=== PATIENT | female | born 1975 | race Caucasian/White ===

== ENCOUNTER 2017-07-02 10:20 | Day surgery (SDC) | payer OTHER ==
--- NOTE | 2017-06-29 15:24 | HP ---
DATE OF SURGERY: 07/02/2017 HISTORY OF PRESENT ILLNESS: The patient is a 41 year-old with problems of irregular heavy periods recently. She had an ultrasound that showed thickened endometrial stripes. She had a Pap smear in the past couple of weeks by Dr. Gutierrez. Given her persistent heavy menstrual periods, I feel she would benefit from D&C in which she presents for. PAST SURGICAL HISTORY: Two sections, umbilical hernia repair. She had a tubal. She had cholecystectomy in the past. MEDICATIONS: vitamins and iron, vitamin D. ALLERGIES: NKDA. FAMILY HISTORY: Heart disease, diabetes. SOCIAL HISTORY: No smoking or alcohol abuse. REVIEW OF SYSTEMS: Twelve systems reviewed per admission assessment. No chest pain or palpitations other systems negative or noncontributory as above and per preadmission questionnaire. Her pelvic ultrasound showed nonspecific endometrial fluid. No suspicious adnexal mass. Irregular intermenstrual bleeding. She was told she had a very thin uterine wall during her last section, according to the patient. PHYSICAL EXAMINATION: GENERAL: No acute distress. HEENT: Sclerae nonicteric. NECK: No JVD. CHEST: Equal excursion, nonlabored breathing. CVS: Regular rate and rhythm. ABDOMEN: Soft. No peritoneal signs. EXTREMITIES: No significant edema. NEURO: Alert, oriented, moving extremities symmetrically. No gross motor deficits noted. 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 IMPRESSION: Intermenstrual irregular vaginal bleeding. I feel she is a candidate for consideration of dilatation and curettage. Risks and benefits explained in detail including but not limited to bleeding or infection, possibility of inability to dilate the cervix to allow for passing dilators up as well as overall risk of persistent bleeding possible requiring other procedures as well as possibility of perforation possibly requiring open procedure, ongoing morbidity, general risk of aches, pains or cramping. Again possibility of recurrent or persistent bleeding possibly requiring other intervention or procedures, general risk of anesthesia, deep venous thrombosis, pulmonary embolism or pneumonia but not limited to. She understands. We will see her back in the office postoperatively to go over the path results.
[~2017-07-02 10:20] MED LIST: Lactated Ringers 1,000 ML IV ONE; Lactated Ringers 1,000 ML IV SCH
[2017-07-02] MEDS ORDERED: DIPRIVAN 200 MG/20 ML IV ONE (10:21)
[2017-07-02] MEDS ORDERED: Zofran 4 MG/2 ML VIAL IV ONE (10:21)
[2017-07-02] MEDS ORDERED: SUBLIMAZE 100 MCG/2 ML IV ONE (10:21)
[2017-07-02] MEDS ORDERED: Decadron 4 MG INJ IV ONE (10:21)
[2017-07-02] MEDS ORDERED: TORAdol 30 mg Injection IJ ONE (10:21)
[2017-07-02] MEDS ORDERED: Lactated Ringers 1,000 ML IV ONE (10:27)
[2017-07-02] MEDS ORDERED: ASTRINGYN 8 GM TP ONE (11:32)
[2017-07-02] MEDS ORDERED: ARZOL Silver Nitrate Applicator TP ONE (11:32)
[2017-07-02] MEDS ORDERED: KEFZOL 1 GM ONE (11:57)
[2017-07-02] MEDS ORDERED: Zofran 4 MG/2 ML VIAL ONE (12:53)
[2017-07-02] MEDS ORDERED: Phenergan 25 MG INJ IV ONE (13:47)
[2017-07-02 14:04] VITALS: O2SAT 98
--- NOTE | 2017-07-02 15:18 | OP ---
SURGERY DATE/TIME: 07/02/2017 1145 PREOPERATIVE DIAGNOSIS: Intermenstrual persistent menorrhagia/vaginal/uterine bleeding, failed medical management. POSTOPERATIVE DIAGNOSIS: Intermenstrual persistent menorrhagia/vaginal/uterine bleeding, failed medical management. PROCEDURE: Dilatation and curettage. SURGEON: Dr. Shadi Dalton. ANESTHESIA: General. ESTIMATED BLOOD LOSS: Minimal. INDICATIONS: As noted above. Risks and benefits explained in detail and not limited to, explained the risk of ongoing bleeding, failure to improve her current bleeding, worsening bleeding as well as risk perforation, general risk of anesthesia, deep venous thrombosis, pulmonary embolism but not limited to and consent obtained. DESCRIPTION OF PROCEDURE AND FINDINGS: The patient is taken to the operating room. General anesthesia introduced. In lithotomy position careful exam going into her uterus on bimanual exam. The lubricated retractors were carefully inserted allowing the anterior cervix to be grasped with tenaculum and elevated up. The os was quite small. There was concern about whether being able to dilate enough to even do the procedure but the sound was able to use to sound whether there was any superior obstruction however the depth was sounding to about 4 cm. Once this was accomplished, lubricated sequential dilators then started from 7 to 9 and carefully going up to size 25 to 27 dilator. It passed smoothly dilating the cervix. Once this was accomplished, I felt it was safely dilated up further than that at this juncture. The polyp forceps did not reveal any gross polyps. At this point a wide curette was carefully inserted and endocervical curettage accomplished. A specimen is sent as well as up to a depth scraping what appeared to be firm uterine wall. There was very little extra tissue. What little tissue there was sent and this was accomplished in four quadrants around there. Again, whether there is any further obstruction in the part of the uterus that could not be reached or whether this is the limits of the cavity was unclear but unfortunately did not have benefit of hysteroscopy at this facility. Therefore curetted level that could be reached carefully, the tissue was sent down to firm uterine on top of the cervix tissue. The specimen passed off. Irrigation accomplished. Good hemostasis noted. As there does not seem to be any significant bleeding coming from the dilated os. At this point the anterior tenaculum was released. There was scant ooze from where the right tooth and veterinary technologist. Watching it for a few seconds. Good hemostasis noted. Copious irrigation irrigating until clear. She had no significant bleeding currently. Findings were discussed with the family out in the waiting area. Should she continue to have persistent bleeding may need to consider referral for hysteroscopy should the path be benign. She tolerated the procedure well. There were no immediate complications. She was transferred to the recovery room in stable condition.
[2017-07-02 15:20] VITALS: BP 132/78; PULSE 83
== END 2017-07-02 14:35 | disposition home or self-care (01) ==
LOC: SDC 10:20
PROVIDERS: ATTEND Surgery
PROC: 0UDB7ZX Extraction of Endometrium, Via Natural or Artificial Opening, Diagnostic (ICD-10-PCS; principal; 2017-07-02)
DX: N92.0 Excessive and frequent menstruation with regular cycle (principal); N93.9 Abnormal uterine and vaginal bleeding, unspecified
CPT/HCPCS: 00940; J0690; J1100; J1885; J2405; J2550; J2704; J3010; A9270-GY

== ENCOUNTER 2021-02-12 15:59 | Emergency (ER) | payer OTHER ==
--- NOTE | 2021-02-12 16:02 | ERPHSYRPT ---
- History of Present Illness Source: patient Exam Limitations: no limitations Timing/Duration: day(s) (4 to 5 days), worse Severity: moderate Associated Symptoms: nausea, shortness of breath, cough (Mild), headaches, weakness, No vomiting, No abdominal pain, No chest pain, No fever <TRACY SANCHEZ - Last Filed: 02/12/21 18:41> <URSULA GARCIA - Last Filed: 02/12/21 20:14> - History of Present Illness Time Seen by Provider: 02/12/21 16:02 Physician History: This is a 45-year-old white female with a history of hypertension, migraine headaches and hypothyroidism who presents with Covid symptoms that have worsened over the last several days. Patient had a positive Covid test result on 02/07/2021. What she is most concerned about today is the worst headache she is ever had plus muscle aches and pains. She is also concerned that she might be dehydrated because she has not been eating or drinking well because of her headache making her a bit nauseated. She has no vomiting or diarrhea. She has no chest pain. Patient had a single dose of Pfizer vaccination approximately 1 week ago (TRACY SANCHEZ) Allergies/Adverse Reactions: silk tape Allergy (Severe, Uncoded 02/12/21 16:16) Home Medications: Bupropion HCl [Wellbutrin Xl] 300 mg PO DAILY 02/12/21 [History] Levothyroxine Sodium 25 Mcg [Synthroid 25 Mcg] 25 mcg PO DAILY 02/12/21 [History] Metoprolol Succinate 25 mg Xl* [Toprol-Xl 25MG Tablets] 25 mg PO DAILY 02/12/21 [History] Topiramate [Topamax] 50 mg PO DAILY 02/12/21 [History] Travel Risk - International Travel Have you traveled outside of the country in past 3 weeks: No - Coronavirus Screening Are you exhibiting any of the following symptoms?: Yes Symptoms: Cough: New Onset, Shortness of Breath, Headaches/Body Aches/Fatigue Close contact with a COVID-19 positive Pt in past 14-21 Days: No <TRACY SANCHEZ - Last Filed: 02/12/21 18:41> - Review of Systems Constitutional: Weakness Eyes: No Symptoms Ears, Nose, & Throat: No Symptoms Respiratory: Cough Cardiac: No Symptoms Abdominal/Gastrointestinal: Nausea Genitourinary Symptoms: No Symptoms Musculoskeletal: Arthralgias, Myalgias Skin: No Symptoms Neurological: Headache Psychological: No Symptoms Endocrine: No Symptoms Hematologic/Lymphatic: No Symptoms Immunological/Allergic: No Symptoms All Other Systems: Reviewed and Negative <TRACY SANCHEZ - Last Filed: 02/12/21 18:41> - Past Medical History Pertinent Past Medical History: Yes Neurological History: No Pertinent History ENT History: No Pertinent History Cardiac History: No Pertinent History Respiratory History: No Pertinent History Endocrine Medical History: No Pertinent History Musculoskeletal History: No Pertinent History GI Medical History: Other History: No Pertinent History Psycho-Social History: Depression Female Reproductive Disorders: Menstrual Problems - Past Surgical History Past Surgical History: Yes Neuro Surgical History: No Pertinent History Cardiac: No Pertinent History Respiratory: No Pertinent History Gastrointestinal: Cholecystectomy, Hernia Repair Genitourinary: No Pertinent History Musculoskeletal: Orthopedic Surgery Female Surgical History: Tubal Ligation, Section Other Surgical History: left ring finger repaired. csection x2 - Social History Smoking Status: Former smoker Drug Use: none <TRACY SANCHEZ - Last Filed: 02/12/21 18:41> - Physical Exam General Appearance: mild distress, alert, anxiety Eye Exam: PERRL/EOMI, eyes nml inspection Ears, Nose, Throat Exam: normal ENT inspection, moist mucous membranes Neck Exam: normal inspection, non-tender, supple, full range of motion Respiratory Exam: normal breath sounds, lungs clear, airway intact, No chest tenderness, No respiratory distress Cardiovascular Exam: regular rate/rhythm, normal heart sounds, normal peripheral pulses Gastrointestinal/Abdomen Exam: soft, normal bowel sounds Pelvic Exam: not done Rectal Exam: not done Back Exam: normal inspection, normal range of motion, No CVA tenderness, No vertebral tenderness Extremity Exam: normal inspection, normal range of motion, pelvis stable Neurologic Exam: alert, oriented x 3, cooperative, a and p mechanic II-XII nml as tested, normal mood/affect, nml cerebellar function, nml station & gait, sensation nml Skin Exam: normal color, warm, dry Lymphatic Exam: No adenopathy SpO2 Interpretation: normal O2 Delivery: Room Air <TRACY SANCHEZ - Last Filed: 02/12/21 18:41> - Nursing Vital Signs Nursing Vital Signs: Initial Vital Signs Temperature 99.6 F 02/12/21 16:04 Pulse Rate 97 H 02/12/21 16:04 Respiratory Rate 21 02/12/21 16:04 Blood Pressure 146/81 02/12/21 16:04 O2 Sat by Pulse Oximetry 98 02/12/21 16:04 Pain Scale Pain Intensity 6 Ordered Tests: Active Orders 24 hr Category Date Time Status IV Insertion STAT Care 02/12/21 16:23 Active Isolation, Initiate & Maintain STAT Care 02/12/21 16:23 Active Pulse Oximetry (ED) STAT Care 02/12/21 16:23 Active CHEST 1 VIEW (PORTABLE) Stat Exams 02/12/21 16:23 Taken HEAD WITHOUT CONTRAST [CT] Stat Exams 02/12/21 16:23 Taken BLOOD CULTURE Stat Lab 02/12/21 16:54 Received CBC W DIFF Stat Lab 02/12/21 16:54 Completed CMP Stat Lab 02/12/21 16:54 Completed INFLUENZA A+B FRANCISCO JAVIER Stat Lab 02/12/21 16:54 Completed Lactic Acid Stat Lab 02/12/21 16:45 Completed Motley Screen Stat Lab 02/12/21 16:45 Completed T4 (Thyroxine) Stat Lab 02/12/21 16:45 Completed TSH [TSH, 3RD Generation] Stat Lab 02/12/21 16:45 Completed UA W/RFX UR CULTURE Stat Lab 02/12/21 19:40 Received Medication Summary Discontinued Medications Generic Name Dose Route Start Last Admin Trade Name Freq PRN Reason Stop Dose Admin Hydrocodone Bitart/Acetaminophen 10 ml 02/12/21 17:23 02/12/21 17:46 Hydrocodone-Acetamin 2.5-108/5 Ml Solution PO 02/12/21 17:24 10 ml STAT STA Administration Hydrocodone Bitart/Acetaminophen Confirm 02/12/21 17:37 Hydrocodone-Acetamin 2.5-108/5 Ml Solution Administered 02/12/21 17:38 Dose 10 ml .ROUTE .STK-MED ONE Dexamethasone Sodium Phosphate 8 mg 02/12/21 17:28 02/12/21 17:46 Decadron 10mg Inj. IV 02/12/21 17:29 8 mg STAT ONE Administration Dexamethasone Sodium Phosphate Confirm 02/12/21 17:36 Decadron 10mg Inj. Administered 02/12/21 17:37 Dose 10 mg .ROUTE .STK-MED ONE Hydromorphone HCl 1 mg 02/12/21 16:24 02/12/21 16:46 Hydromorphone 1 Mg/Ml Injection IV 02/12/21 16:25 1 mg STAT ONE Administration Hydromorphone HCl Confirm 02/12/21 16:42 Hydromorphone 1 Mg/Ml Injection Administered 02/12/21 16:43 Dose 1 mg .ROUTE .STK-MED ONE Hydromorphone HCl 1 mg 02/12/21 19:33 02/12/21 19:38 Hydromorphone 1 Mg/Ml Injection IV 02/12/21 19:34 1 mg STAT ONE Administration Hydromorphone HCl Confirm 02/12/21 19:37 Hydromorphone 1 Mg/Ml Injection Administered 02/12/21 19:38 Dose 1 mg .ROUTE .STK-MED ONE Sodium Chloride 1,000 mls @ 999 mls/hr 02/12/21 17:22 02/12/21 18:50 Sodium Chloride 0.9% 1000 Ml IV 02/12/21 18:22 Infused .Q1H1M STA Infusion Sodium Chloride Confirm 02/12/21 17:37 Sodium Chloride 0.9% 1000 Ml Administered 02/12/21 17:38 Dose 1,000 mls @ ud .ROUTE .STK-MED ONE Sodium Chloride 1,000 mls @ 999 mls/hr 02/12/21 18:18 02/12/21 18:51 Sodium Chloride 0.9% 1000 Ml IV 02/12/21 19:18 999 mls/hr .Q1H1M STA Administration Sodium Chloride Confirm 02/12/21 18:26 Sodium Chloride 0.9% 1000 Ml Administered 02/12/21 18:27 Dose 1,000 mls @ ud .ROUTE .STK-MED ONE Ondansetron HCl 4 mg 02/12/21 16:23 02/12/21 16:46 Zofran 4 Mg/2 Ml Vial IV 02/12/21 16:24 4 mg STAT STA Administration Ondansetron HCl Confirm 02/12/21 16:42 Zofran 4 Mg/2 Ml Vial Administered 02/12/21 16:43 Dose 4 mg .ROUTE .STK-MED ONE Lab/Rad Data: Laboratory Result Diagrams 02/12/21 16:54 02/12/21 16:54 Laboratory Results 02/12/21 02/12/21 02/12/21 Range/Units 16:54 16:54 16:54 WBC 4.5 (4.0-10.5) K/mm3 RBC 4.11 (4.1-5.4) M/mm3 Hgb 12.1 (12.0-16.0) gm/dl Hct 37.7 (35-47) % MCV 91.7 (78-100) fl MCH 29.4 (26-32) pg MCHC 32.1 (32-36) g/dl RDW 12.1 (11.5-14.0) % Plt Count 175 (150-450) K/mm3 MPV 12.3 H (7.5-11.0) fl Gran % 78.9 H (36.0-66.0) % Eos # (Auto) 0 (0-0.5) Absolute Lymphs (auto) 0.67 L (1.0-4.6) Absolute Monos (auto) 0.28 (0.0-1.3) Lymphocytes % 14.9 L (24.0-44.0) % Monocytes % 6.2 (0.0-12.0) % Eosinophils % 0.0 (0.00-5.0) % Basophils % 0.0 (0.0-0.4) % Absolute Granulocytes 3.55 (1.4-6.9) Basophils # 0 (0-0.4) Sodium 137 (137-145) mmol/L Potassium 4.1 (3.5-5.1) mmol/L Chloride 104 (98-107) mmol/L Carbon Dioxide 23 (22-30) mmol/L Anion Gap 12.7 (5-15) MEQ/L BUN 13 (7-17) mg/dL Creatinine 1.01 (0.52-1.04) mg/dL Estimated GFR > 60.0 ML/MIN Glucose 104 (74-106) mg/dL Lactic Acid (0.4-2.0) Calcium 8.9 (8.4-10.2) mg/dL Total Bilirubin 0.40 (0.2-1.3) mg/dL AST 28 (14-36) U/L ALT 18 (0-35) U/L Alkaline Phosphatase 65 (38-126) U/L Serum Total Protein 6.8 (6.3-8.2) g/dL Albumin 4.1 (3.5-5.0) g/dL Thyroxine (T4) (5.53-10.96) ug/dL TSH 3rd Generation (0.47-4.68) mIU/L Monoscreen (Negative) Influenza Type A Ag NEGATIVE (NEGATIVE) Influenza Type B Ag NEGATIVE (NEGATIVE) 02/12/21 02/12/21 02/12/21 Range/Units 16:45 16:45 16:45 WBC (4.0-10.5) K/mm3 RBC (4.1-5.4) M/mm3 Hgb (12.0-16.0) gm/dl Hct (35-47) % MCV (78-100) fl MCH (26-32) pg MCHC (32-36) g/dl RDW (11.5-14.0) % Plt Count (150-450) K/mm3 MPV (7.5-11.0) fl Gran % (36.0-66.0) % Eos # (Auto) (0-0.5) Absolute Lymphs (auto) (1.0-4.6) Absolute Monos (auto) (0.0-1.3) Lymphocytes % (24.0-44.0) % Monocytes % (0.0-12.0) % Eosinophils % (0.00-5.0) % Basophils % (0.0-0.4) % Absolute Granulocytes (1.4-6.9) Basophils # (0-0.4) Sodium (137-145) mmol/L Potassium (3.5-5.1) mmol/L Chloride (98-107) mmol/L Carbon Dioxide (22-30) mmol/L Anion Gap (5-15) MEQ/L BUN (7-17) mg/dL Creatinine (0.52-1.04) mg/dL Estimated GFR ML/MIN Glucose (74-106) mg/dL Lactic Acid 1.0 (0.4-2.0) Calcium (8.4-10.2) mg/dL Total Bilirubin (0.2-1.3) mg/dL AST (14-36) U/L ALT (0-35) U/L Alkaline Phosphatase (38-126) U/L Serum Total Protein (6.3-8.2) g/dL Albumin (3.5-5.0) g/dL Thyroxine (T4) 7.37 (5.53-10.96) ug/dL TSH 3rd Generation 1.480 (0.47-4.68) mIU/L Monoscreen POSITIVE (Negative) Influenza Type A Ag (NEGATIVE) Influenza Type B Ag (NEGATIVE) - Progress Progress: improved, pain not gone completely, re-examined Counseled pt/family regarding: lab results, diagnosis, need for follow-up, rad results <TRACY SANCHEZ - Last Filed: 02/12/21 18:41> - Progress Progress: improved, re-examined Counseled pt/family regarding: lab results, diagnosis, need for follow-up, rad results <URSULA GARCIA - Last Filed: 02/12/21 20:14> - Progress Progress Note: 02/12/21 17:33 CAT scan of the head without contrast shows no acute intracranial abnormality 02/12/21 18:13 Chest x-ray shows no acute cardiopulmonary process. 02/12/21 18:18 Patient states she is noticeably improving with the fluids. She is still not urinated. We will place another liter of intravenous fluids and obtain the urinalysis to see if she has a urinary tract infection and assess the degree of dehydration if present. 02/12/21 18:[address] Garcia at shift change. He will make final disposition and follow-up on any outstanding lab reports. (TRACY SANCHEZ) 02/12/21 18:59 pt received at [facility] from Dr. Sanchez after review/discussion of pending labs and current results and introduction,, pt is COvid + but doing well not short of breath but with what appears to be mono. 02/12/21 19:00 02/12/21 19:05 02/12/21 20:03 discussed risks/benefits with pt of admission for obs and that undetected pathology could still be evolving including other vascular conditions or complications. she wishes to try outpt Tx with steroid to help mono and as adjunct to Covid, and push fluids and return if not improving or any furhter symptoms of concern rather than furhter testing in ER or admission at this time and has the capacity to make this choice. she is not SOBreath at this time and has maintained good pulse ox and with good CXR as well. Normal neuro on exam and headache resolving. 02/12/21 20:06 (URSULA GARCIA) - Departure Departure Disposition: Home Critical Care Time: No <TRACY SANCHEZ EmelyOzzie - Last Filed: 02/12/21 18:41> - Departure Departure Disposition: Home Critical Care Time: No <URSULA GARCIA - Last Filed: 02/12/21 20:14> - Departure Clinical Impression: Mononucleosis, COVID-19 virus infection, Hematuria Condition: Good [facility] [Primary Care Provider] - Instructions: Mononucleosis (DC), Coronavirus Disease 2019 (COVID-19) (DC), Blood in the Urine (Hematuria), Adult (DC) Additional Instructions: try to push fluids next few days. have urine rechecked by your Dr, for blood as we found trace blood. followup with your Dr. this week, and return meantime if not improving or if increasing symptoms, short of breath, vomiting or unable to keep up with fluids or worse headache or any other concerns. Prescriptions: Dexamethasone 4 mg [Decadron 4 MG] 6 mg PO DAILY #14 tablet
[2021-02-12] MEDS ORDERED: Zofran 4 MG/2 ML VIAL IV STA (16:23)
[2021-02-12] MEDS ORDERED: Hydromorphone 1 mg/ml Injection IV ONE ×2 (16:24→19:33)
[2021-02-12] MEDS ORDERED: Hydromorphone 1 mg/ml Injection ONE ×2 (16:42→19:37)
[2021-02-12] MEDS ORDERED: Zofran 4 MG/2 ML VIAL ONE (16:42)
[2021-02-12 16:58] LABS: Absolute Neutrophil Ct (ANC) 3.55 (1.4-6.9); Basophil (Absolute #) 0 (0-0.4); Eosinophil (Absolute #) 0 (0-0.5); Hematocrit 37.7 % (35-47); Hemoglobin 12.1 gm/dl (12.0-16.0); Lymphocyte (Absolute #) 0.67 (1.0-4.6); Lymphocytes % 14.9 % (24.0-44.0); Mean Cell Volume 91.7 fl (78-100); Mean Corpuscular Hemoglobin 29.4 pg (26-32); Mean Corpuscular Hgb Concent. 32.1 g/dl (32-36); Mean Platelet Volume 12.3 fl (7.5-11.0); Monocyte (Absolute #) 0.28 (0.0-1.3); Monocytes % 6.2 % (0.0-12.0); Neutrophil % 78.9 % (36.0-66.0); Platelet Count 175 K/mm3 (150-450); Red Blood Count 4.11 M/mm3 (4.1-5.4); Red Cell Distribution Width 12.1 % (11.5-14.0); White Blood Count 4.5 K/mm3 (4.0-10.5)
[2021-02-12 17:10] LABS: ALBUMIN 4.1 g/dL (3.5-5.0); ALKALINE PHOSPHATASE 65 U/L (38-126); ANION GAP 12.7 MEQ/L (5-15); BLOOD UREA NITROGEN 13 mg/dL (7-17); CHLORIDE 104 mmol/L (98-107); Calcium 8.9 mg/dL (8.4-10.2); Carbon Dioxide 23 mmol/L (22-30); Creatinine 1 1.01 mg/dL (0.52-1.04); EST GLOMERULAR FILTRATION RATE > 60.0 ML/MIN; Glucose 104 mg/dL (74-106); Potassium 4.1 mmol/L (3.5-5.1); SGOT/AST 28 U/L (14-36); SGPT/ALT 18 U/L (0-35); SODIUM 137 mmol/L (137-145); Total Protein 6.8 g/dL (6.3-8.2)
[2021-02-12 17:18] LABS: INFLUENZA A NEGATIVE (NEGATIVE); INFLUENZA B NEGATIVE (NEGATIVE)
[2021-02-12] MEDS ORDERED: Sodium Chloride 0.9% 1000 ML 1,000 ML IV STA ×2 (17:22→18:18)
[2021-02-12] MEDS ORDERED: HYDROCODONE-ACETAMIN 2.5-108/5 ML SOLUTION PO STA (17:23)
[2021-02-12] MEDS ORDERED: DECADRON 10MG INJ. IV ONE (17:28)
[2021-02-12] MEDS ORDERED: DECADRON 10MG INJ. ONE (17:36)
[2021-02-12] MEDS ORDERED: Sodium Chloride 0.9% 1000 ML 1,000 ML ONE ×2 (17:37→18:26)
[2021-02-12] MEDS ORDERED: HYDROCODONE-ACETAMIN 2.5-108/5 ML SOLUTION ONE (17:37)
[2021-02-12 18:12] LABS: T4 (Thyroxine) 7.37 ug/dL (5.53-10.96); TSH, 3RD Generation 1.48 mIU/L (0.47-4.68)
--- NOTE | 2021-02-12 19:50 | XRAY ---
Indication: Short of breath, fatigue, and headache. Positive Covid 19. Comparison: None Portable chest demonstrates normal heart, lungs, and bony thorax.
--- NOTE | 2021-02-12 19:50 | XRAY ---
Indication: Severe headache. Positive Covid 19. Multiple contiguous axial images obtained through the head without contrast. Comparison: None Normal appearing brain parenchyma, ventricles, and bony calvarium. Visualized paranasal sinuses and mastoid air cells are clear. Impression: Normal CT head without contrast exam. Comment: Preliminary interpretation made by [facility]. No critical discrepancy.
[2021-02-12 19:51] LABS: Appearance CLOUDY (CLEAR); Bacteria RARE /HPF (NEGATIVE); Bilirubin NEGATIVE (NEGATIVE); Blood MODERATE Ery/ul (0-5); Epithelial Cells FEW /HPF (FEW); Glucose NEGATIVE (NEGATIVE); Ketones TRACE (NEGATIVE); Leukocyte Esterase NEGATIVE (NEGATIVE); Mucus MANY /HPF (NEGATIVE); Nitrite NEGATIVE (NEGATIVE); Protein,Urine Dip 30 (Negative); Specific Gravity 1.024 (1.005-1.025); Urobilinogen 4 mg/dL (0-1)
[2021-02-12 20:23] VITALS: BP 109/68; PULSE 80
[2021-02-12] MEDS ORDERED: Decadron 4 MG ONE (20:25)
[2021-02-12] MEDS: HYDROCODONE-ACETAMIN 10-325 MG PO ONE ×2 (20:32→20:33)
[2021-02-12 20:37] VITALS: O2SAT 96
[2021-02-13] MEDS ORDERED: Decadron 4 MG PO SCH (10:00)
== END 2021-02-12 20:43 | disposition home or self-care (01) ==
LOC: ED 15:59
DX: B27.90 Infectious mononucleosis, unspecified without complication (principal); U07.1 COVID-19; R31.9 Hematuria, unspecified
CPT/HCPCS: 36000; 36415; 70450; 71045; 80053; 81001; 83605; 84436; 84443; 85025; 86308; 87040; 87086; 87400; 94760; 96360; 96374; 96375; 96376; 99285; J1100; J1170; J2405; A9270-GY

== ENCOUNTER 2021-12-29 06:55 | Day surgery (SDC) | payer OTHER ==
--- NOTE | 2021-12-26 13:39 | HP ---
DATE OF SURGERY: 12/29/2021 HISTORY OF PRESENT ILLNESS: The patient is a 46-year-old presents for colonoscopy. The patient has had no colonoscopy to date. Reports that her grandfather had colon cancer. The patient reports she has had constipation her whole life otherwise no GI complaints. PAST MEDICAL HISTORY: Migraines, hypertension, thyroid. PAST SURGICAL HISTORY: section x2. Umbilical hernia repair. Tubal ligation. Cholecystectomy. D&C. ALLERGIES: NKDA. MEDICATIONS: Toprol, Wellbutrin, Synthroid. FAMILY HISTORY: Hypertension, diabetes, heart disease, colon cancer. SOCIAL HISTORY: Occasional alcohol. REVIEW OF SYSTEMS: CONSTITUTIONAL: Denies fever or chills. CHEST: Denies shortness of breath. CVS: Denies chest pain. ABDOMEN: Denies abdominal pain. PHYSICAL EXAMINATION: GENERAL: No acute distress. CHEST: Nonlabored. No shortness of breath. CVS: Regular rate and rhythm. ABDOMEN: Soft. IMPRESSION: Screening. PLAN: Colonoscopy with Dr. James Branham. As dictated by Crystal Wilkerson NP.
[2021-12-29] MEDS ORDERED: Lactated Ringers 1,000 ML IV SCH (08:00)
[2021-12-29] MEDS ORDERED: Lactated Ringers 1,000 ML IV ONE (08:03)
[2021-12-29] MEDS ORDERED: DIPRIVAN 200 MG/20 ML IV ONE ×2 (09:31→09:47)
[2021-12-29] MEDS ORDERED: Versed 2 MG/2 ML Injection ONE (09:34)
[2021-12-29] MEDS ORDERED: Xylocaine-Mpf 2% 5 Ml Vial ONE (09:35)
[2021-12-29 11:00] VITALS: BP 114/75; PULSE 71; O2SAT 100
--- NOTE | 2021-12-29 11:30 | OP ---
SURGERY DATE/TIME: 12/29/2021 0936 PREOPERATIVE DIAGNOSIS: Family history of colon cancer in grandfather. Patient requiring earlier screening. The patient is 45 years old and presents for screening. POSTOPERATIVE DIAGNOSIS: Normal. PROCEDURE: Colonoscopy complete to cecum. SURGEON: James Branham M.D. ANESTHESIA: MAC. COMPLICATIONS: None. CONDITION: Stable. INDICATION: The patient has grandfather with colon cancer, requires an earlier screening and a consistent screening exam. DESCRIPTION OF PROCEDURE: Taken to endoscopy. Left lateral decubitus position. Anal digital examination satisfactory. She is having menses. Scope introduced. The scope advanced to the cecum. Base of the cecum, ileocecal valve, appendiceal orifice normal. Circumferential withdrawal ascending, hepatic, transverse, splenic, descending, sigmoid, rectum, anus normal. Normal exam. She does have a family history. We will send her a five year reminder. Prep score was excellent. Withdrawal time of 5 minutes.
== END 2021-12-29 11:05 | disposition home or self-care (01) ==
LOC: SDC 06:55
PROVIDERS: ATTEND Surgery
DX: Z12.11 Encounter for screening for malignant neoplasm of colon (principal); Z80.0 Family history of malignant neoplasm of digestive organs
CPT/HCPCS: J2250; J2704

== ENCOUNTER 2023-05-22 17:28 | Emergency (ER) | payer OTHER ==
[2023-05-22] MEDS ORDERED: TORAdol 30 mg Injection IV ONE (17:51)
[2023-05-22] MEDS ORDERED: Compazine 10 MG/2 ML IV ONE (17:51)
[2023-05-22] MEDS ORDERED: Zofran 4 MG/2 ML VIAL IV ONE (17:51)
[2023-05-22] MEDS ORDERED: Sodium Chloride 0.9% 1000 ML 1,000 ML IV STA (17:51)
[2023-05-22 17:54] VITALS: TEMP 98.4
[2023-05-22] MEDS ORDERED: Compazine 10 MG/2 ML ONE (18:21)
[2023-05-22] MEDS ORDERED: Sodium Chloride 0.9% 1000 ML 1,000 ML ONE (18:21)
[2023-05-22] MEDS ORDERED: TORAdol 30 mg Injection ONE (18:21)
[2023-05-22] MEDS ORDERED: Zofran 4 MG/2 ML VIAL ONE (18:21)
--- NOTE | 2023-05-22 18:33 | ERPHSYRPT ---
- History of Present Illness Time Seen by Provider: 05/22/23 17:55 Exam Limitations: no limitations Patient Subjective Stated Complaint: covid headache Triage Nursing Assessment: Pt brought to the ER by her , hypertensive, rates head pain as 10/10, light sensitive, pulses normal, skin n/w/d, congested, pain to the frontal part of head and down to her ears worse in the right than the left Physician History: 39-year-old female COVID-positive presents to our ED with a frontal headache and sinus congestion. Patient has had similar symptoms in the past with COVID positivity. Patient believes her headache is due to COVID. No trauma. No f ever no neck pain. Mild photophobia. Patient has no meningeal signs. Symptoms are moderate in intensity. Light and sound worsen patient's pain. No nuchal rigidity. Patient is otherwise healthy. She voices no other complaints or concerns at this time. Portions of this note were created with voice recognition technology. There may be grammatical, spelling, punctuation or sound alike errors Timing/Duration: today Severity: moderate Modifying Factors: Improves With: nothing Associated Symptoms: denies symptoms Allergies/Adverse Reactions: silk tape Adverse Reaction (Severe, Uncoded 12/29/21 07:39) Travel Risk - International Travel Have you traveled outside of the country in past 3 weeks: No - Coronavirus Screening Are you exhibiting any of the following symptoms?: Yes Symptoms: Fever, Cough: New Onset, Headaches/Body Aches/Fatigue Close contact with a COVID-19 positive Pt in past 14-21 Days: No - Vaccine Status Have you recieved a Covid-19 vaccination: Yes [employer]: Moderna - Vaccination Dates Date of 2cond Vaccination (if applicable): hasn't had - Review of Systems Constitutional: No Symptoms, No Fever, No Chills Eyes: No Symptoms Ears, Nose, & Throat: No Symptoms Respiratory: No Symptoms, No Cough, No Dyspnea Cardiac: No Symptoms, No Chest Pain, No Edema, No Syncope Abdominal/Gastrointestinal: No Symptoms, No Abdominal Pain, No Nausea, No Vomiting, No Diarrhea Genitourinary Symptoms: No Symptoms, No Dysuria Musculoskeletal: No Symptoms, No Back Pain, No Neck Pain Skin: No Symptoms, No Rash Neurological: No Symptoms, No Dizziness, No Focal Weakness, No Sensory Changes Psychological: No Symptoms Endocrine: No Symptoms Hematologic/Lymphatic: No Symptoms Immunological/Allergic: No Symptoms All Other Systems: Reviewed and Negative - Past Medical History Pertinent Past Medical History: Yes Neurological History: No Pertinent History ENT History: No Pertinent History Cardiac History: Hypertension Respiratory History: No Pertinent History Endocrine Medical History: Other Musculoskeletal History: No Pertinent History GI Medical History: Other History: No Pertinent History Psycho-Social History: Depression Female Reproductive Disorders: Menstrual Problems Other Medical History: anemia - Past Surgical History Past Surgical History: Yes Neuro Surgical History: No Pertinent History Cardiac: No Pertinent History Respiratory: No Pertinent History Gastrointestinal: Cholecystectomy, Hernia Repair Genitourinary: No Pertinent History Musculoskeletal: Orthopedic Surgery Female Surgical History: Dilation & Curettage, Section, Tubal Ligation Other Surgical History: left ring finger repaired. csection x2 - Social History Smoking Status: Former smoker Exposure to second hand smoke: No Drug Use: none Patient Lives Alone: No - Female History Hx Now: No - Nursing Vital Signs Nursing Vital Signs: Initial Vital Signs Temperature 98.4 F 05/22/23 17:48 Pulse Rate 85 05/22/23 17:48 Blood Pressure 149/73 05/22/23 17:48 O2 Sat by Pulse Oximetry 98 05/22/23 17:48 Pain Scale Pain Intensity 10 - Physical Exam General Appearance: no apparent distress, alert, other (Nasal congestion) Eye Exam: PERRL/EOMI, eyes nml inspection Ears, Nose, Throat Exam: normal ENT inspection, TMs normal, pharynx normal, moist mucous membranes Neck Exam: normal inspection, non-tender, supple, full range of motion Respiratory Exam: normal breath sounds, lungs clear, airway intact, No respiratory distress Cardiovascular Exam: regular rate/rhythm, normal heart sounds, normal peripheral pulses Gastrointestinal/Abdomen Exam: soft, normal bowel sounds, No tenderness, No mass Back Exam: normal inspection, normal range of motion, No CVA tenderness, No vertebral tenderness Extremity Exam: normal inspection, normal range of motion, pelvis stable Neurologic Exam: alert, oriented x 3, cooperative, normal mood/affect, nml cerebellar function, nml station & gait, sensation nml, No motor deficits Skin Exam: normal color, warm, dry, No rash Lymphatic Exam: No adenopathy SpO2 Interpretation: normal SpO2: 98 O2 Delivery: Room Air - Course Nursing assessment & vital signs reviewed: Yes Ordered Tests: Active Orders 24 hr Category Date Time Status IV Insertion STAT Care 05/22/23 17:51 Active Medication Summary Discontinued Medications Generic Name Dose Route Start Last Admin Trade Name Kenzie PRN Reason Stop Dose Admin Diphenhydramine HCl 25 mg 05/22/23 19:19 05/22/23 19:55 Diphenhydramine Hcl 50 Mg/Ml Vial IV 05/22/23 19:20 25 mg STAT ONE Administration Diphenhydramine HCl Confirm 05/22/23 19:50 Diphenhydramine Hcl 50 Mg/Ml Vial Administered 05/22/23 19:51 Dose 50 mg .ROUTE .STK-MED ONE Droperidol 1.25 mg 05/22/23 19:20 05/22/23 19:56 Droperidol 5 Mg/2 Ml Vial IV 05/22/23 19:21 1.25 mg STAT ONE Administration Droperidol Confirm 05/22/23 19:50 Droperidol 5 Mg/2 Ml Vial Administered 05/22/23 19:51 Dose 5 mg .ROUTE .STK-MED ONE Sodium Chloride 1,000 mls @ 999 mls/hr 05/22/23 17:51 05/22/23 18:26 Sodium Chloride 0.9% 1000 Ml IV 05/22/23 18:51 999 mls/hr .Q1H1M STA Administration Sodium Chloride Confirm 05/22/23 18:21 Sodium Chloride 0.9% 1000 Ml Administered 05/22/23 18:22 Dose 1,000 mls @ ud .ROUTE .STK-MED ONE Ketorolac Tromethamine 30 mg 05/22/23 17:51 05/22/23 18:26 Ketorolac Tromethamine 30 Mg/Ml Inj IV 05/22/23 17:52 30 mg STAT ONE Administration Ketorolac Tromethamine Confirm 05/22/23 18:21 Ketorolac Tromethamine 30 Mg/Ml Inj Administered 05/22/23 18:22 Dose 30 mg .ROUTE .STK-MED ONE Ondansetron HCl 4 mg 05/22/23 17:51 05/22/23 18:26 Ondansetron Hcl 4 Mg/2 Ml Vial IV 05/22/23 17:52 4 mg STAT ONE Administration Ondansetron HCl Confirm 05/22/23 18:21 Ondansetron Hcl 4 Mg/2 Ml Vial Administered 05/22/23 18:22 Dose 4 mg .ROUTE .STK-MED ONE Prochlorperazine Edisylate 10 mg 05/22/23 17:51 05/22/23 18:26 Prochlorperazine Edisylate 10 Mg/2 Ml Vial IV 05/22/23 17:52 10 mg STAT ONE Administration Prochlorperazine Edisylate Confirm 05/22/23 18:21 Prochlorperazine Edisylate 10 Mg/2 Ml Vial Administered 05/22/23 18:22 Dose 10 mg .ROUTE .STK-MED ONE - Progress Progress: improved Progress Note: Patient is a 47-year-old female COVID-positive presents to our ED nasal blayne estion and frontal headache. Neurologic exam nonremarkable. Physical exam reveals a URI. Patient received IV fluids Benadryl Compazine Toradol droperidol. Headache resolved. Neuroexam within normal limits. Patient that she is ready for discharge. Portions of this note were created with voice recognition technology. There may be grammatical, spelling, punctuation or sound alike errors Complexity problem addressed is moderate acute complicated No critical care time Complexity of data reviewed and analyzed is none. No specialized testing ordered. Diagnosis made based on history and physical exam. Risk of complication and a risk morbidity/mortality of patient management is moderate. Will discharge home. Vital stable. Time spent to discharge patient is approximately 15 minutes. Plan of care established for shared decision making. No social determinants of health present impede follow-up. Portions of this note were created with voice recognition technology. There may be grammatical, spelling, punctuation or sound alike errors 05/22/23 20:34 Counseled pt/family regarding: diagnosis, need for follow-up - Departure Departure Disposition: Home Clinical Impression: COVID-19, URI (upper respiratory infection), Headache Condition: Stable Critical Care Time: No Referrals: JENNI MELISSA NP [Primary Care Provider] - Follow up/PCP as directed Additional Instructions: Discharge/Care Plan EUN MORIN was seen on 05/22/23 in the Emergency Room. The patient was counseled regarding Diagnosis,Lab results, Imaging studies, need for follow up and when to return to the Emergency Room. Prescriptions given: Discharge Note I have spoken with the patient and/or caregivers. I have explained the patient's condition, diagnosis and treatment plan based on the information available to me at this time. I have answered the patient's and/or caregiver's questions and addressed any concerns. The patient and/or caregivers have as good understanding of the patient's diagnosis, condition and treatment plan as can be expected at this point. The vital signs have been stable. The patient's condition is stable and appropriate for discharge from the emergency department. The patient will pursue further outpatient evaluation with the primary care physician or other designated or consulting physician as outlined in the discharge instructions. The patient and/or caregivers are agreeable to this plan of care and follow-up instructions have been explained in detail. The patient and/or caregivers have received these instruction. The patient/and or caregivers are aware that any significant change in condition or worsening of symptoms should prompt an immediate return to this or the closest emergency department or call 911. Prescriptions: Ketorolac Trometh 10 mg Tab [TORAdol 10 MG TABLET] 10 mg PO TID 5 Days #15 tablet
[2023-05-22] MEDS ORDERED: BENADRYL 50 MG/ML IV ONE (19:19)
[2023-05-22] MEDS ORDERED: BENADRYL 50 MG/ML ONE (19:50)
[2023-05-22 20:31] VITALS: O2SAT 98
[2023-05-22 20:38] VITALS: BP 132/81; PULSE 81; RESP 18
== END 2023-05-22 20:39 | disposition home or self-care (01) ==
LOC: ED 17:28
DX: U07.1 COVID-19 (principal); J06.9 Acute upper respiratory infection, unspecified; R51.9 Headache, unspecified; I10 Essential (primary) hypertension
CPT/HCPCS: 96374; 96375; 99284; J1200; J1885; J2405